=== PATIENT | male | born 1990 | race Caucasian/White ===

== ENCOUNTER 2016-06-06 00:54 | Emergency (ER) | payer OTHER | END 2016-06-06 05:00 | disposition left against medical advice (07) | LOC: ER1 00:54 | DX: Z53.21 Procedure and treatment not carried out due to patient leaving prior to being seen by health care provider (principal) | CPT/HCPCS: 93005 ==

== ENCOUNTER → 2016-09-30 | Outpatient (CLI) | payer OTHER | LOC: RAD 13:39 | DX: M54.2 Cervicalgia (principal); M54.5 Low back pain; M54.6 Pain in thoracic spine | CPT/HCPCS: 72050; 72072; 72110 ==

== ENCOUNTER 2020-09-12 10:49 | Emergency (ER) | payer OTHER ==
[~2020-09-12 10:49] MED LIST: AUGMENTIN 875-1 EACH PO; COLACE 100MG C100 MG PO; IBUPROFEN800 MG PO; METRONIDAZOLE500 MG PO; ZITHROMAX1 GM PO
== END 2020-09-12 14:46 | disposition home or self-care (01) ==
LOC: ER1 10:49
DX: S00.93XA Contusion of unspecified part of head, initial encounter (principal); Y04.2XXA Assault by strike against or bumped into by another person, initial encounter
CPT/HCPCS: 70450; 72125; 99284